=== PATIENT | male | born 1980 | race Caucasian/White ===

== ENCOUNTER 2022-03-31 08:49 | Day surgery (SDC) | payer BC ==
[2022-03-29 12:07] LABS: BASOPHILS % (AUTO) 0.7 % (0-1); EOSINOPHILS # (AUTO) 0.1 X10'3 (0-0.9); LYMPHOCYTES % (AUTO) 30.7 % (21-51); MEAN CORPUSCULAR HEMOGLOBIN 31.2 PG (27.0-31.0); MEAN CORPUSCULAR HGB CONC 33.2 g/dL (33.0-36.5); MEAN CORPUSCULAR VOLUME 94.2 FL (78-98); MEAN PLATELET VOLUME 7.6 FL (7.4-10.4); MONOCYTES # (AUTO) 0.5 X10'3 (0-0.9); MONOCYTES % (AUTO) 8.2 % (2-12); NEUTROPHILS # (AUTO) 3.7 X10'3 (1.8-7.7); NEUTROPHILS % (AUTO) 58.4 % (42-75); PRE OP HEMATOCRIT 42.8 % (42.0-52.0); PRE OP HEMOGLOBIN 14.2 g/dL (14.0-17.9); PRE OP PLATELET COUNT 250 X10'3 (140-440); RED BLOOD COUNT 4.55 X10'6 (4.70-6.10); RED CELL DISTRIBUTION WIDTH 13.5 % (11.5-14.5)
[2022-03-29 12:08] LABS: CLARITY,URINE CLOUDY (Clear); COLOR,URINE YELLOW (Yellow); GLUCOSE, URINE NEGATIVE (Neg); KETONES,URINE NEGATIVE (Neg); LEUKOCYTE ESTERASE ,URINE NEGATIVE (Neg); NITRITES, URINE NEGATIVE (Neg); OCCULT BLOOD,URINE NEGATIVE (Neg); PH,URINE 7.5 (4.8-8.0); PROTEIN,URINE NEGATIVE (Neg); UROBILINOGEN,URINE 0.2 E.U/dL (0.2-1.0)
[2022-03-29 12:17] LABS: MUCUS STRANDS FEW /LPF (Neg); SQUAMOUS EPITHELIAL CELL,UR FEW /LPF (FEW); UA COLLECTION TYPE CLN CATCH MIDSTREAM
[2022-03-29 12:18] LABS: AMORPHOUS PHOSPHATES 2+
[2022-03-29 12:19] LABS: ALBUMIN 3.8 G/DL (3.4-5.0); ALBUMIN/GLOBULIN RATIO 1.3 (1.1-1.5); ALKALINE PHOSPHATASE 52 IU/L (46-116); BLOOD UREA NITROGEN 13 MG/DL (7-18); BUN/CREATININE RATIO 15.1 (5.4-32.0); CALCIUM 8.6 MG/DL (8.5-10.1); CHLORIDE 106 MMOL/L (99-107); CREATININE 0.86 MG/DL (0.60-1.10); PRE OP ALT 20 U/L (30-65); PRE OP ANION GAP 6 (8-16); PRE OP AST 17 U/L (10-37); PRE OP BILIRUB, TOTAL 0.4 MG/DL (0.0-1.0); PRE OP GLUCOSE 84 MG/DL (70-104); PRE OP POTASSIUM 4.1 MMOL/L (3.4-5.1); PRE OP SODIUM 141 MMOL/L (135-145); TOTAL CARBON DIOXIDE 28.9 MMOL/L (24-32); TOTAL PROTEIN 6.7 G/DL (6.4-8.2); eGFR > 90 ML/MIN
[2022-03-29 12:19] LABS: BACTERIA,URINE FEW /HPF (Neg); RBC,URINE 0-2 /HPF (0-2); WBC,URINE 0-4 /HPF (0-4)
[2022-03-31] VITALS (12 sets, daily range): BP systolic 118–132; BP diastolic 70–83
[~2022-03-31] VITALS: Ht 180.3 cm; Wt 70.3 kg
[~2022-03-31 08:49] MED LIST: NO HOME MEDS; ceFAZolin inj. 2,000 MG in dextrose 5%-water 100 ML IV ONE; famotidine 20mg tablet PO ONE; ringers solution, lacted 1,000 ML IV SCH
[2022-03-31] MEDS ORDERED: BUPIVAcaine/PF 2.5mg/ml (0.25%) 10ml vial ONE (09:23)
[2022-03-31] MEDS ORDERED: ondansetron/PF 4mg/2ml inj ONE (11:03)
[2022-03-31] MEDS ORDERED: glycopyrrolate 0.2mg/ml inj ONE (11:03)
[2022-03-31] MEDS ORDERED: neostigmine methylsulfate 1 MG/ML 10ml vial ONE (11:03)
[2022-03-31] MEDS ORDERED: sevoflurane 250ml liquid IH ONE (11:03)
[2022-03-31] MEDS ORDERED: midazolam 1 mg/ML 2ml injection ONE (11:12)
[2022-03-31] MEDS ORDERED: fentaNYL /PF 50mcg/ml 5ml ampule ONE (11:12)
[2022-03-31] MEDS ORDERED: propofol inj 20 ML IV ONE (11:20)
[2022-03-31] MEDS ORDERED: dexamethasone sod phosphate 4mg/ml inj. ONE (11:20)
[2022-03-31] MEDS ORDERED: rocuronium 10mg/ml inj IV ONE (11:20)
[2022-03-31] MEDS ORDERED: LIDOcaine 1%/PF 5ML 10 MG/ML VIAL ONE (11:20)
[2022-03-31] MEDS ORDERED: ondansetron/PF 4mg/2ml inj IV PRN (11:25)
[2022-03-31] MEDS ORDERED: morphine 2 MG/ML inj. syringe IV PRN (11:25)
[2022-03-31] MEDS ORDERED: proCHLORperazine 10 MG/2 ml inj IV PRN (11:25)
[2022-03-31] MEDS ORDERED: morphine 4 MG/ML inj SYRINge IV PRN (11:25)
[2022-03-31] MEDS ORDERED: meperidine/PF 25mg/ml syringe IV PRN ×3 (11:25)
[2022-03-31] MEDS ORDERED: ringers solution, lacted 1,000 ML IV SCH (11:25)
[2022-03-31] MEDS ORDERED: ketorolac trometh. 30mg/ml inj. ONE (12:13)
[2022-03-31] MEDS ORDERED: meperidine/PF 25mg/ml syringe ONE (12:27)
--- NOTE | 2022-03-31 12:37 | NUR ---
Received from OR via [facility] , accompanied by Anesthesiologist and report given by Anesthesiologist:DR PETER. VSS. PATIENT IS BRADYCARDIC, THIS IS HIS BASELINE PER ANESTHESIOLOGIST. ON 10 LITERS WITH MASK AND LMA. 20 GAUGE IN LEFT HAND. PATIENT STATES NO PAIN. LAP SITES X 3 WITH DERMABOND. Addendum: 03/31/22 at 1321 by Lori Galloway RN Amended: Links added.
--- NOTE | 2022-03-31 14:27 | NUR ---
PATIENT MEETS DISCHARGE CRITERIA. VSS. IV DC'D WITH NO COMPLICATIONS. PATIENT URINATED X 2. BLADDER SCANNED PATIENT, HE HAD 10 MLS RESIDUAL. WHEELED PATIENT TO LOBBY AND EDUCATED ON DISCHARGE INSTRUCTIONS. Addendum: 03/31/22 at 1433 by Lori Galloway RN Amended: Links added.
--- NOTE | 2022-03-31 14:27 | NUR ---
PATIENT MEETS DISCHARGE CRITERIA. VSS. PATIENT URINATED X2 . BLADDER SCANNED PATIENT, HE HAD 10MLS RESIDUAL. NO DISTENTION. PATIENT STATED NO PAIN JUST SOME SORENESS. WHEELED PATIENT TO HIS CAR AND WENT OVER HIS DISCHARGE INSTRUCTION WITH HIS .
== END 2022-03-31 14:38 | disposition home or self-care (01) ==
LOC: PAS 08:49
PROVIDERS: ATTEND Surgery
DX: K40.90 Unilateral inguinal hernia, without obstruction or gangrene, not specified as recurrent (principal); F17.210 Nicotine dependence, cigarettes, uncomplicated; Z72.89 Other problems related to lifestyle; Z79.899 Other long term (current) drug therapy; Z80.3 Family history of malignant neoplasm of breast; Z82.49 Family history of ischemic heart disease and other diseases of the circulatory system
CPT/HCPCS: 36415; 49650; 80053; 81001; 82948; 85025; 93005; C1758; C1781; J0690; J1100; J1885; J2175; J2250; J2405; J2704; J2710; J3010; J3490; J7030; J7060; J7120; S2900; Z7506; Z7508; Z7512; A4215; A4618